=== PATIENT | male | born 1995 | race Caucasian/White ===

== ENCOUNTER 2016-07-09 12:46 | Emergency (ER) | payer MEDICAID, OTHER ==
[2016-07-09 13:06] VITALS: BP 130/74
--- NOTE | 2016-07-09 13:32 | UC ---
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 may be allergic to Amox - History of Current Complaint Chief Complaint: UCRespiratory Stated Complaint: SWOLLEN GLANDS Time Seen by Provider: 07/09/16 13:24 Hx Obtained From: Patient Onset/Duration: Gradual Onset, Lasting Days Severity: Moderate Pain Intensity: 4 Pain Scale Used: 0-10 Numeric Associated Signs & Symptoms: Negative: Nasal Discharge, Fever - Epiglottits Risk Factors Epiglottis Risk Factors: Negative - Allergies/Home Medications Allergies/Adverse Reactions: Allergies Allergy/AdvReac Type Severity Reaction Status Date / Time Clarithromycin [From Biaxin] Allergy Rash Verified 07/06/13 16:30 PMH/Surg Hx/FS Hx/Imm Hx Previously Healthy: Yes - Surgical History Surgical History: Yes Surgery Procedure, Year, and Place: ear tubes. appendectomy - Family History Known Family History: Negative: Cardiac Disease, Hypertension, Diabetes - Social History Alcohol Use: None Substance Use Type: None Smoking Status (MU): Never Smoked Tobacco Review of Systems Constitutional: Negative Skin: Negative Eyes: Negative ENT: Sore Throat Respiratory: Negative Cardiovascular: Negative Gastrointestinal: Negative Genitourinary: Negative Motor: Negative Neurovascular: Negative Musculoskeletal: Negative Neurological: Negative Psychological: Negative All Other Systems Reviewed And Are Negative: Yes Physical Exam Triage Information Reviewed: Yes Appearance: Well-Appearing, No Pain Distress, Well-Nourished Vital Signs: Initial Vital Signs Temp 99.5 F 07/09/16 13:02 Pulse 108 07/09/16 13:02 Resp 16 07/09/16 13:02 BP 130/74 07/09/16 13:02 Pulse Ox 100 07/09/16 13:02 Eyes: Positive: Conjunctiva Clear ENT: Positive: Pharyngeal erythema, TM bulging - left, TM red - left, Tonsillar swelling, Tonsillar exudate, Other: - midline uvula. Negative: Hearing grossly normal, Nasal congestion, Nasal drainage, TMs normal - right scarred, Trismus, Muffled/hoarse voice Neck: Positive: Supple, Enlarged Nodes @ - tender ant cervical nodes Respiratory: Positive: Lungs clear, Normal breath sounds, No respiratory distress, No accessory muscle use Cardiovascular: Positive: RRR, No Murmur, Tachycardia Musculoskeletal: Positive: ROM Intact, No Edema Neurological: Positive: Alert Psychological Exam: Normal Skin Exam: Normal Throat Pain/Nasal Course/Dx - Differential Dx/Diagnosis Provider Diagnoses: acute tonsillitis. left otitis media Discharge - Discharge Plan Condition: Stable Disposition: HOME Prescriptions: Cefuroxime Axetil [Ceftin 250 MG] 250 mg PO BID #20 tab Prednisone 60 mg PO DAILY #9 tab Patient Education Materials: Otitis Media (ED), Tonsillitis (ED) Forms: *Work Release Additional Instructions: recheck in 3-4 days if not better
== END 2016-07-09 13:40 | disposition home or self-care (01) ==
LOC: UCEAST 12:46
DX: J03.90 Acute tonsillitis, unspecified (principal); H66.92 Otitis media, unspecified, left ear; R03.0 Elevated blood-pressure reading, without diagnosis of hypertension; Z88.1 Allergy status to other antibiotic agents
CPT/HCPCS: 99202; G0463

== ENCOUNTER 2019-06-12 11:53 | Emergency (ER) | payer SELFPAY ==
[2019-06-12 12:41] VITALS: BP 125/92
--- NOTE | 2019-06-12 12:58 | UC ---
Lower Extremity/Ankle HPI - HPI Summary HPI Summary: 6 days ago while walking in [place] he developed left lateral foot pain---5th mt area--no deformity---does have and abrasion on left lateral ankle and is unsure how it got it----patient is able to WB but worsens though out the day--- no plantar fac. pain - History of Current Complaint Chief Complaint: UCLowerExtremity Stated Complaint: ANKLE INJURY Time Seen by Provider: 06/12/19 12:31 Hx Obtained From: Patient Onset/Duration: Gradual Onset, Lasting Days - 6, Still Present Pain Intensity: 10 Pain Scale Used: 0-10 Numeric Aggravating Factor(s): Standing, Ambulation Alleviating Factor(s): Rest, Elevation Able to Bear Weight: Yes - Allergies/Home Medications Allergies/Adverse Reactions: Allergies Allergy/AdvReac Type Severity Reaction Status Date / Time clarithromycin [From Biaxin] Allergy Rash Verified 06/12/19 12:36 Home Medications: Home Medications NK [No Home Medications Reported] 06/12/19 [History Confirmed 06/12/19] PMH/Surg Hx/FS Hx/Imm Hx Previously Healthy: Yes - Surgical History Surgical History: Yes Surgery Procedure, Year, and Place: ear tubes. 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 Lives: With Family Alcohol Use: None Substance Use Type: None Smoking Status (MU): Never Smoked Tobacco Review of Systems All Other Systems Reviewed And Are Negative: Yes Constitutional: Positive: Negative Skin: Positive: Negative Eyes: Positive: Negative ENT: Positive: Negative Respiratory: Positive: Negative Gastrointestinal: Positive: Negative Genitourinary: Positive: Negative Motor: Positive: Negative, Decreased ROM Musculoskeletal: Positive: Arthralgia - left lateral foot/ankle pain Neurological: Positive: Negative Psychological: Positive: Negative Is Patient Immunocompromised?: No Physical Exam Triage Information Reviewed: Yes Appearance: Well-Appearing, No Pain Distress, Well-Nourished Vital Signs: Initial Vital Signs Temp 99 F 06/12/19 12:37 Pulse 72 06/12/19 12:37 Resp 16 06/12/19 12:37 BP 125/92 06/12/19 12:37 Pulse Ox 100 06/12/19 12:37 Vital Signs Reviewed: Yes Eye Exam: Normal Eyes: Positive: Conjunctiva Clear ENT Exam: Normal ENT: Positive: Normal ENT inspection, Hearing grossly normal. Negative: Trismus , Muffled voice, Hoarse voice Dental Exam: Normal Neck exam: Normal Neck: Positive: Supple, Nontender Respiratory Exam: Normal Respiratory: Positive: Chest non-tender, No respiratory distress, No accessory muscle use Cardiovascular Exam: Normal Cardiovascular: Positive: RRR, Pulses Normal, Brisk Capillary Refill Musculoskeletal Exam: Normal Musculoskeletal: Positive: Strength Intact, ROM Intact, No Edema Neurological Exam: Normal Neurological: Positive: Alert, Muscle Tone Normal Psychological Exam: Normal Skin Exam: Normal Diagnostics - Radiology No standard instances Radiology Interpretation Completed By: Radiologist - negative for acute injury Lower Extremity Course/Dx - Course Course Of Treatment: álvaro wrap, rice, follow with pcp prn - Differential Dx/Diagnosis Provider Diagnosis: Sprain of foot, left Discharge ED - Sign-Out/Discharge Documenting (check all that apply): Patient Departure All imaging exams completed and their final reports reviewed: Yes - Discharge Plan Condition: Stable Disposition: HOME Patient Education Materials: Ibuprofen (By mouth), Foot Sprain (ED), R.I.C.E. Treatment (ED), Flatfoot (DC) Referrals: Maurilio Gonzalez MD [Primary Care Provider] - If Needed - Billing Disposition and Condition Condition: STABLE Disposition: Home
== END 2019-06-12 13:50 | disposition home or self-care (01) ==
LOC: UCEAST 11:53
DX: S93.602A Unspecified sprain of left foot, initial encounter (principal); S90.512A Abrasion, left ankle, initial encounter; Z88.1 Allergy status to other antibiotic agents; X58.XXXA Exposure to other specified factors, initial encounter; Y93.01 Activity, walking, marching and hiking; Y92.9 Unspecified place or not applicable
CPT/HCPCS: 99212; G0463